=== PATIENT | female | born 2000 | race Native Hawaiian/Other Pacific Islander ===

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

== ENCOUNTER 2022-02-01 11:40 | Emergency (ER) | payer OTHER ==
[~2022-02-01] VITALS: Ht 154.9 cm; Wt 98.0 kg
[2022-02-01 12:28] LABS: PLATELET COUNT 282 K/uL (152-353)
[2022-02-01 12:41] LABS: POTASSIUM 3.6 mmol/L (3.6-5.2)
[2022-02-01] MEDS ORDERED: ONDA4TAB3 PO (13:20)
[2022-02-01] MEDS ORDERED: PANTOPRAZOLE 40MG TA PO (15:08)
[2022-02-01 15:27] VITALS: BP 110/61; TEMP 97.2
== END 2022-02-01 15:27 | disposition home or self-care (01) ==
LOC: ED 11:40
PROVIDERS: Emergency Medicine
DX: K29.60 Other gastritis without bleeding (principal); E86.0 Dehydration
CPT/HCPCS: 80053; 81002; 81025; 85027; 96360; 96375; 99284; J3490